=== PATIENT | male | born 1980 | race Caucasian/White ===

== ENCOUNTER 2018-08-07 02:16 | Emergency (ER) | payer SELFPAY ==
[~2018-08-07] VITALS: Ht 177.8 cm; Wt 84.8 kg
[2018-08-07 02:24] VITALS: Ht 177.8 cm; Wt 84.8 kg
[2018-08-07 04:56] VITALS: BP 115/74
== END 2018-08-07 04:56 | disposition home or self-care (01) ==
LOC: ED 02:16
DX: G44.009 Cluster headache syndrome, unspecified, not intractable (principal)
CPT/HCPCS: J1200; J2765